=== PATIENT | male | born 1970 | race Caucasian/White ===

== ENCOUNTER 2016-10-20 17:49 | Emergency (ER) | payer BC ==
[~2016-10-20] VITALS: Ht 182.9 cm; Wt 116.0 kg
[~2016-10-20 17:49] MED LIST: ZITH250T PO
[2016-10-20 17:52] VITALS: BP 144/95; PULSE 66; RESP 16; TEMP 98.4; O2SAT 97
[2016-10-20] MEDS ORDERED: TEST1INJ3 IM (18:10)
--- NOTE | 2016-10-20 19:27 | PD ---
HPI Chief Complaint: Injury Time Seen by Provider: 19:24 Travel History International Travel<30 days: No Contact w/Intl Traveler<30days: No Traveled to known affect area: No History of Present Illness HPI This 46-year-old male is complaining of pain in her right knee. He says he was standing and felt a pop in the knee and has had significant pain since then. He has trouble bearing weight at this time. He has no prior history of knee problems. There is been no fever or chills. PFSH Past Medical History Medical History: Denies Significant Hx Musculoskeletal: Yes (MULTIPLE BODY FRACTURES "NOSE, HANDS, LEGS, ANKLES") Tetanus Vaccination: < 5 Years Influenza Vaccination: No Past Surgical History Surgical History: No Previous Surgery Social History Alcohol Use: No Tobacco Use: No Substance Use: No Allergies-Medications (Allergen,Severity, Reaction): Coded Allergies: No Known Allergies (Verified , 10/20/16) Reported Meds & Prescriptions Reported Meds & Active Scripts Active Reported Testosterone Cypionate Inj (Testosterone Cypionate) 100 Mg/Ml Inj 100 Mg IM WEEKLY Review of Systems General / Constitutional: No: Fever, Chills Eyes: No: Diploplia, Blurred Vision HENT: No: Headaches, Vertigo Cardiovascular: No: Chest Pain or Discomfort Respiratory: No: Shortness of Breath Gastrointestinal: No: Nausea, Vomiting Genitourinary: No: Urgency, Frequency Musculoskeletal: Positive: Myalgias, Pain Skin: No Rash, No Itching Physical Exam Narrative GENERAL: Well-developed male. He appears uncomfortable with pain SKIN: Focused skin assessment warm/dry. HEAD: Atraumatic. Normocephalic. EYES: Pupils equal and round. No scleral icterus. No injection or drainage. ENT: No nasal bleeding or discharge. Mucous membranes pink and moist. NECK: Trachea midline. No JVD. MUSCULOSKELETAL: No obvious deformities. No clubbing. No cyanosis. No edema. Right knee is not erythematous or warm. Does not appear swollen. He does complain of pain with any movement of the knee. There is no obvious instability NEUROLOGICAL: Awake and alert. No obvious cranial nerve deficits. Motor grossly within normal limits. Normal speech. PSYCHIATRIC: Appropriate mood and affect; insight and judgment normal. Data Data Last Documented VS Vital Signs Date Time Temp Pulse Resp B/P Pulse Ox O2 Delivery O2 Flow Rate FiO2 10/20/16 17:52 98.4 66 16 144/95 97 Orders Knee, Complete (4vws) (10/20/16 19:25) Oxycodone-Acetamin 5-325 Mg (Percocet (10/20/16 19:30) MDM Medical Decision Making Medical Screen Exam Complete: Yes Emergency Medical Condition: Yes Medical Record Reviewed: Yes Differential Diagnosis Differential includes ligamentous injury, meniscal injury, Narrative Course X-ray shows small joint effusion. No fracture is seen. Impression is internal derangement of knee. Diagnosis Primary Impression: Internal derangement of right knee Scripts Oxycodone-Acetaminophen (Percocet)7.5-325 mg Tab1 Tab PO Q4H PRN (PAIN) #30 TAB Ref 0 Prov:Alan Roth MD 10/20/16 Disposition: 01 DISCHARGE HOME Condition: Stable Alan Roth MD Oct 20, 2016 19:27
[2016-10-20] MEDS ORDERED: oxyCODONE/ACETAMINOPHEN 5 MG/325 MG TAB PO ONE (19:30)
--- NOTE | 2016-10-20 20:06 | RADHPO ---
EXAM DATE/TIME: 10/20/2016 19:40 [facility] COMPARISON: No previous studies available for comparison. INDICATIONS : Entire right knee pain and swelling. MEDICAL HISTORY : None. SURGICAL HISTORY : None. ENCOUNTER: Initial ACUITY: 1 day PAIN SCORE: 10/10 LOCATION: Right knee FINDINGS: Four view examination of the right knee demonstrates no evidence of fracture or dislocation. Bony mi neralization is normal. Small effusion. Soft tissue swelling. The articular surfaces are intact. CONCLUSION: Small joint effusion. No definite fracture seen. Evaristo Silva MD on October 20, 2016 at 20:04 Board Certified Radiologist. This report was verified electronically.
[2016-10-20] MEDS ORDERED: PERC7.5T13 PO (20:11)
[2016-10-20 20:15] VITALS: RESP 18
== END 2016-10-20 20:30 | disposition home or self-care (01) ==
LOC: PHEFT 17:49
DX: M23.91 Unspecified internal derangement of right knee (principal); M25.461 Effusion, right knee; Z87.39 Personal history of other diseases of the musculoskeletal system and connective tissue; X58.XXXA Exposure to other specified factors, initial encounter
CPT/HCPCS: 73564; 99283; E0113; L1830